=== PATIENT | female | born 1955 | race Two or more races ===

== ENCOUNTER 2019-01-14 14:53 | Emergency (ER) | payer SELFPAY ==
[~2019-01-14] VITALS: Ht 165.1 cm; Wt 88.0 kg
[2019-01-14 17:46] LABS: EOSINOPHILS % 2.3 % (0.0-5.0); HEMATOCRIT. 40.4 % (36.0-48.0); HEMOGLOBIN. 13.9 g/dL (12.0-16.0); LYMPHOCYTES % 32.4 % (20.0-50.0); MEAN CORPUSCULAR HEMOGLOBIN 30.6 pg (28.0-32.0); MEAN CORPUSCULAR VOLUME 89.2 fL (81.0-99.0); MEAN PLATELET VOLUME 7.1 fl (7.4-10.4); MONOCYTES % 5.9 % (2.0-8.0); NEUTROPHILS % 58.4 % (40.0-76.0); PLATELET 372 x1000/uL (130-400); RED BLOOD CELL COUNT 4.52 mill/uL (4.2-5.4); RED CELL DISTRIBUTION WIDTH 12.8 % (11.6-14.6)
[2019-01-14 17:50] LABS: CHLORIDE 108 mEq/L (98-107)
[2019-01-14 18:14] VITALS: BP 128/52
[2019-01-14] MEDS: IBUPROFEN 600MG TABLET PO STA (18:14)
== END 2019-01-14 19:08 | disposition home or self-care (01) ==
LOC: ER 14:53
DX: R10.11 Right upper quadrant pain (principal); R20.2 Paresthesia of skin; E11.9 Type 2 diabetes mellitus without complications; Z90.49 Acquired absence of other specified parts of digestive tract
CPT/HCPCS: 36415; 80053; 83690; 85025; 99283; Z7610

== ENCOUNTER 2024-04-13 17:54 | Emergency (ER) | payer OTHER ==
[~2024-04-13] VITALS: Ht 162.6 cm; Wt 91.0 kg
[2024-04-13 18:00] VITALS: O2SAT 95
[2024-04-13 18:22] LABS: BASOPHILS % 0.4 % (0.0-2.0); EOSINOPHILS % 1.8 % (0.0-5.0); HEMATOCRIT. 40.2 % (36.0-48.0); HEMOGLOBIN. 13.5 g/dL (12.0-16.0); MEAN CORPUSCULAR HEMOGLOBIN 30.2 pg (28.0-32.0); MEAN CORPUSCULAR HGB CONC 33.5 g/dL (31.0-37.0); MEAN PLATELET VOLUME 6.8 fl (7.4-10.4); MONOCYTES % 3.3 % (2.0-8.0); NEUTROPHILS % 81.5 % (40.0-76.0); PLATELET 358 x1000/uL (130-400); RED BLOOD CELL COUNT 4.47 mill/uL (4.2-5.4); WHITE BLOOD COUNT 7.8 x1000/uL (4.5-11.0)
[2024-04-13 18:31] LABS: CARBON DIOXIDE 29 mEq/L (21-32); CHLORIDE 106 mEq/L (98-107); POTASSIUM 4.4 mEq/L (3.5-5.1); SODIUM 139 mEq/L (136-145)
[2024-04-13 18:32] LABS: CALCIUM 9.2 mg/dL (8.7-10.4)
[2024-04-13 18:37] LABS: CREATININE 0.8 mg/dL (0.6-1.0); GLUCOSE 129 mg/dL (70-105); UREA NITROGEN BLOOD 13 mg/dL (9-23)
[2024-04-13 18:42] LABS: TROPONIN I HIGH SENSITIVITY < 4 ng/L (3.0-34)
[2024-04-13] MEDS: PANTOPRAZOLE SODIUM 40 MG/VIAL IV ONE (19:45)
[2024-04-13 21:19] LABS: ALANINE AMINOTRANSFERASE 24 IU/L (10-49); ALBUMIN 4.6 g/dL (3.2-4.8); ASPARTATE AMINOTRANSFERASE 31 IU/L (<34); BILIRUBIN DIRECT 0.2 mg/dL (<=3.0); PROTEIN TOTAL 7.5 g/dL (6.0-8.3)
[2024-04-13] MEDS: PANTOPRAZOLE SODIUM 40 MG/VIAL IV NR (23:06)
[2024-04-14 02:40] LABS: CLARITY URINE CLEAR (CLEAR); COLOR URINE YELLOW (YELLOW); GLUCOSE URINE NEGATIVE (NEGATIVE); KETONES URINE NEGATIVE (NEGATIVE); LEUKOCYTE ESTERASE URINE NEGATIVE (NEGATIVE); NITRITE URINE NEGATIVE (NEGATIVE); OCCULT BLOOD URINE 1+ (NEGATIVE); PROTEIN URINE TRACE (NEGATIVE); SPECIFIC GRAVITY URINE >1.040 (1.005-1.030); UROBILINOGEN URINE 0.2 E.U./dL (0.2-1.0)
[2024-04-14 03:32] LABS: RBC URINE 0-2 /hpf (0-2); SQUAMOUS EPITHELIAL CELL URINE FEW /lpf (RARE/1+); WBC URINE 0-2 /hpf (0-2)
[2024-04-14 03:33] LABS: BACTERIA URINE NONE SEEN
[2024-04-14 05:38] VITALS: BP 123/62; PULSE 72; RESP 20; TEMP 98.4; O2SAT 96
[2024-04-14] MEDS ORDERED: IOHEXOL-300 100 ML BOTTLE ONE (06:54)
== END 2024-04-14 06:06 | disposition short-term general hospital (02) ==
LOC: ER 17:54 → EDBEDREQ 04-14 00:36 → ER 04-14 06:06
DX: K92.2 Gastrointestinal hemorrhage, unspecified (principal); Z90.49 Acquired absence of other specified parts of digestive tract
CPT/HCPCS: 80076; 80048; 83690; 85025; 84484; 36415; 93005; 96374; 99285; 81003; 74177; J2470; Z7610 ×3; Q9967

== ENCOUNTER 2024-10-19 17:41 | Emergency (ER) | payer OTHER ==
[~2024-10-19] VITALS: Ht 152.4 cm; Wt 94.3 kg
[2024-10-19 17:45] VITALS: O2SAT 97
[2024-10-19] MEDS ORDERED: IBUP-2029 MT (21:34)
[2024-10-19] MEDS: IBUPROFEN 600MG TABLET PO ONE (21:47)
[2024-10-19] MEDS: HYDROCODONE/ACETAMINOPHEN 5/325MG TABLET PO ONE (21:48)
[2024-10-19 21:49] VITALS: BP 159/88; PULSE 76; RESP 16; TEMP 36.9; O2SAT 99
== END 2024-10-19 21:50 | disposition home or self-care (01) ==
LOC: ER 17:41
DX: S93.501A Unspecified sprain of right great toe, initial encounter (principal); Z90.49 Acquired absence of other specified parts of digestive tract; E11.9 Type 2 diabetes mellitus without complications; W19.XXXA Unspecified fall, initial encounter; Y93.89 Activity, other specified; Y92.89 Other specified places as the place of occurrence of the external cause; Y99.8 Other external cause status
CPT/HCPCS: 73620; 99283